=== PATIENT | male | born 1950 | race American Indian/Alaskan Native ===

== ENCOUNTER 2016-10-24 07:06 | Day surgery (SDC) | payer OTHER ==
[~2016-10-24 07:06] MED LIST: ANCEF/STERILE WATER 2 GM/20 ML 2 GM/20 ML SYRINGE IV NR; GARAMYCIN 120 MG in NACL 0.9% 100 ML IV SCH; GARAMYCIN/NS 120MG/100ML 120 MG/100 ML BAG IV SCH; PEPCID PO NR; VERSED IV NR
[2016-10-24] MEDS ORDERED: ZOFRAN ONE (07:07)
[2016-10-24] MEDS ORDERED: DECADRON ONE (07:07)
[2016-10-24] MEDS ORDERED: DILAUDID ONE (07:07)
[2016-10-24] MEDS ORDERED: DIPRIVAN 10 MG/ML IV ONE (07:07)
[2016-10-24] MEDS ORDERED: XYLOCAINE MPF 2% ONE (07:08)
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
--- NOTE | 2016-10-24 07:25 | Anesthesia Day of Surgery ---
Anesthesia Day of Surgery - Day of Surgery Patient Examined: Yes Patient H&P Reviewed: Yes Patient is NPO: Yes
[2016-10-24 08:00] LABS: Basophils % (Auto) 1.2 % (0.0-1.8); Eosinophils % (Auto) 5.2 % (0.0-4.3); Hematocrit 41.7 % (35.5-45.6); Mean Corpuscular HGB Conc 34 % (32-34); Mean Corpuscular Hemoglobin 29 pg (28-32); Mean Corpuscular Volume 87 fl (84-94); Platelet Count 174 K/mm3 (140-440); Red Blood Count 4.81 M/mm3 (3.65-5.03); Red Cell Distribution Width 13.3 % (13.2-15.2); White Blood Count 4.8 K/mm3 (4.5-11.0)
[2016-10-24] MEDS ORDERED: DILAUDID IV PRN (08:00)
[2016-10-24] MEDS ORDERED: ZOFRAN IV PRN (08:00)
[2016-10-24] MEDS: NACL 0.9% 1000 ML 1,000 ML IV SCH ×2 (08:09→09:37)
[2016-10-24 08:12] LABS: INR 0.93 (0.87-1.13); Partial Thromboplastin Time 30.2 Sec. (24.2-36.6)
[2016-10-24 08:23] LABS: Alanine Aminotransferase 16 units/L (7-56); Albumin/Globulin Ratio 1.4 %; Alkaline Phosphatase 68 units/L (35-129); Anion Gap 16 mmol/L; BUN/Creatinine Ratio 11.11; Blood Urea Nitrogen 10 mg/dL (9-20); Calcium 8.8 mg/dL (8.4-10.2); Carbon Dioxide 26 mmol/L (22-30); Chloride 102.2 mmol/L (98-107); Glucose 97 mg/dL (75-100); Sodium 140 mmol/L (137-145); Total Protein 6.8 g/dL (6.3-8.2)
[2016-10-24] MEDS ORDERED: WATER FOR IRRIG STERILE IR ONE (08:45)
--- NOTE | 2016-10-24 09:07 | Post Operative Note ---
Pre-op diagnosis: inc psa Post-op diagnosis: same Findings: hypoechoic zone L lobe Procedure Preoperative diagnosis is elevated PSA Postoperative diagnosis the same Procedure flexible cystoscopy prostate needle biopsy Surgeon Dr. Arias Anesthesia Gen. Findings\ Mr. Castillo is a 66-year-old gentleman who has a high PSA. He has a moderately enlarged prostate and now presents for prostate biopsy and flexible cystoscopy. Procedure Patient was brought to the operating room placed on the operating table. Following the induction of anesthesia placed in the lithotomy position prepped and draped in usual sterile fashion. At this point flexible cystoscopy was carried out and showed a large prostate with a middle lobe covering the trigone We had to wait for the ultrasound probe because apparently was some emergency. At this point when the ultrasound arrived prostate needle biopsy measured the prostate approximately 48 g. There was clearly a high polyp: His zone in the left lobe towards the base which measured approximately 1.5 x 1 cm. 12 biopsies were obtained using ultrasound guidance. Patient procedure well and bladder was emptied with Bruno catheter There was no significant complications and was given Ancef and gentamicin per to recovery in stable condition thank you and Dale Castillo Procedure: flex cysto pus biopsy Anesthesia: GETA Surgeon: BRITNI WILLARD Estimated blood loss: minimal Pathology: list (prostate) Specimen disposition: to lab Condition: stable Disposition: PACU
--- NOTE | 2016-10-24 09:08 | Discharge Summary ---
Short Stay Discharge Plan Activity: other (no straining ) Weight Bearing Status: Full Weight Bearing Diet: regular Special Instructions: other (inc fluids ) Durable Medical Equipment Needed Upon Discharge: other Follow up with: BRITNI WILLARD MD [Staff Physician] - 7 Days
--- NOTE | 2016-10-24 09:25 | XRay Report ---
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 The abdominal gas pattern is unremarkable. No masses or organomegaly is identified and there is no gross evidence of free air or fluid. No significant soft tissue calcifications are noted. IMPRESSION: Normal study.
--- NOTE | 2016-10-24 09:27 | Ultrasound Report ---
ULTRASOUND-GUIDED INTRAOPERATIVE HISTORY: Elevated PSA, prostate biopsy. DESCRIPTION OF PROCEDURE: Endorectal ultrasound guidance was provided by radiology during prostate biopsy by urology. Please correlate with the procedural report. IMPRESSION: Successful ultrasound guided prostate biopsy.
--- NOTE | 2016-10-24 09:32 | Post Anesthesia Evaluation ---
- Post Anesthesia Evaluation Patient Participated: Yes Airway Patent: Yes Stable Respiratory Function: Yes Nausea/Vomiting: No Temp > 96.8F: Yes Pain Manageable: Yes Adequeate Hydration: Yes Anesthesia Complications: No Block Receding Appropriately: Not Applicable Patient on Ventilator: No
[2016-10-24 11:12] VITALS: BP 133/68
== END 2016-10-24 11:35 ==
LOC: OR 07:06
PROVIDERS: ATTEND Urology
DX: N40.0 Benign prostatic hyperplasia without lower urinary tract symptoms (principal); N41.0 Acute prostatitis; N41.1 Chronic prostatitis; J45.909 Unspecified asthma, uncomplicated; I10 Essential (primary) hypertension; Z85.72 Personal history of non-Hodgkin lymphomas; Z87.891 Personal history of nicotine dependence
CPT/HCPCS: 36415; 55700; 74000; 76998; 80053; 85025; 85610; 85730; 88305; A4217; J0690; J1100; J1170; J1580; J2250; J2405; J2704; J7030

== ENCOUNTER 2019-03-19 06:31 | Day surgery (SDC) | payer OTHER ==
[~2019-03-19 06:31] MED LIST changes: -ANCEF/STERILE WATER 2 GM/20 ML 2 GM/20 ML SYRINGE IV NR; -GARAMYCIN 120 MG in NACL 0.9% 100 ML IV SCH; -GARAMYCIN/NS 120MG/100ML 120 MG/100 ML BAG IV SCH; -PEPCID PO NR; -VERSED IV NR; +ceFAZolin/STERILE WATER 2 GM/20 ML SYRINGE IV NR
[2019-03-19] MEDS ORDERED: fentaNYL 100 MCG/2 ML INJ IV PRN (07:31)
[2019-03-19] MEDS ORDERED: ONDANSETRON 4 MG/2 ML INJ IV PRN (07:31)
[2019-03-19] MEDS ORDERED: MAGNESIUM OXIDE 400 MG TAB PO NR (07:32)
[2019-03-19] MEDS ORDERED: ACETAMINOPHEN 325 MG TAB PO NR (07:32)
--- NOTE | 2019-03-19 07:33 | Anesthesia Day of Surgery ---
Anesthesia Day of Surgery - Day of Surgery Patient Examined: Yes Patient H&P Reviewed: Yes Patient is NPO: Yes
--- NOTE | 2019-03-19 07:37 | Anesthesia Consultation ---
Anesthesia Consult and Med Hx Date of service: 03/19/19 - Airway Anesthetic Teeth Evaluation: Poor, Chipped ROM Head & Neck: Adequate Mental/Hyoid Distance: Adequate Mallampati Class: Class II Intubation Access Assessment: Probably Good - Pre-Operative Health Status ASA Pre-Surgery Classification: ASA2 Proposed Anesthetic Plan: General - Pulmonary Hx Smoking: Yes Hx Asthma: Yes (INH AND PRN NEBS) Hx Sleep Apnea: No (JAQUI PRE SCREEN HIGH RISK) - Cardiovascular System Hx Hypertension: Yes (2008) - Central Nervous System Hx Neuromuscular Disorder: Yes (Neuropathy left hand) Hx Psychiatric Problems: No - Other Systems Hx Cancer: Yes (Prostate)
[2019-03-19] MEDS ORDERED: BACTERIOSTATIC SODIUM CHLORIDE 0.9% 30 ML VIAL INFILTRATI ONE (07:44)
[2019-03-19] MEDS ORDERED: LACTATED RINGERS 1,000 ML IV SCH (08:00)
[2019-03-19] MEDS ORDERED: GABAPENTIN 300 MG CAP PO NR (08:00)
[2019-03-19] MEDS ORDERED: CELECOXIB 200 MG CAP PO NR (08:00)
[2019-03-19] MEDS ORDERED: BUPIVACAINE-EPINEPHRINE/PF 0.25%-1:200,000 (30 ML) VIAL INFILTRATI ONE ×3 (09:27→10:19)
[2019-03-19] MEDS ORDERED: HYDROmorphone 1 MG/1 ML INJ ONE (09:28)
[2019-03-19] MEDS ORDERED: PROPOFOL 200 MG/20 ML VIAL IV ONE (09:28)
[2019-03-19] MEDS ORDERED: LIDOCAINE MPF (2%) 20 MG/1 ML VIAL 5 ML ONE (09:30)
[2019-03-19] MEDS ORDERED: ROCURONIUM 50 MG/5 ML INJ IV ONE (09:31)
[2019-03-19] MEDS ORDERED: SODIUM CHLORIDE 0.9% 1000 ML IV SOLN IR ONE (10:58)
[2019-03-19] MEDS ORDERED: ONDANSETRON 4 MG/2 ML INJ ONE (12:09)
[2019-03-19] MEDS ORDERED: GLYCOPYRROLATE 0.4 MG/2 ML INJ ONE (12:09)
[2019-03-19] MEDS ORDERED: NEOSTIGMINE 10MG/10 ML INJ MDV ONE (12:09)
[2019-03-19] MEDS ORDERED: LACTATED RINGERS 1,000 ML ONE (12:12)
--- NOTE | 2019-03-19 12:58 | Short Stay Summary ---
Short Stay Documentation Date of service: 03/19/19 - History H&P: obtained from office - Allergies and Medications Current Medications: Allergies No Known Allergies Allergy (Verified 03/12/19 14:41) Home Medications Medication Instructions Recorded Confirmed Last Taken Type ALBUTEROL NEB's [Proventil 0.083% 2.5 mg IH TID PRN 03/12/19 03/12/19 03/19/19 05:30 History NEBS] Fluticasone Propionate [Flovent 12 gm IH BID 03/12/19 03/12/19 03/19/19 05:30 History Hfa] dilTIAZem HCl [Diltiazem 24Hr ER 240 mg PO DAILY 03/12/19 03/12/19 03/19/19 05:30 History (Cd)] Active Medications Cefazolin Sodium (Ancef/Sterile Water 2 Gm/20 Ml) 2 gm IV PREOP NR Stop: 03/19/19 23:59 Celecoxib (Celebrex) 200 mg PO PREOP NR Stop: 03/19/19 13:00 Last Admin: 03/19/19 07:43 Dose: 200 mg Documented by: Fentanyl (Sublimaze) 50 mcg IV Q5MIN PRN PRN Reason: Pain , Severe (7-10) Stop: 03/19/19 20:00 Gabapentin (Gabapentin) 300 mg PO PREOP NR Stop: 03/19/19 13:00 Last Admin: 03/19/19 07:43 Dose: 300 mg Documented by: Lactated Ringer's (Lactated Ringers) 1,000 mls @ 125 mls/hr IV DIRECT MILANA Last Admin: 03/19/19 08:00 Dose: 125 mls/hr Documented by: Magnesium Oxide (Mag-Ox) 400 mg PO ONCE NR Stop: 03/19/19 13:00 Last Admin: 03/19/19 07:43 Dose: 400 mg Documented by: Ondansetron HCl (Zofran) 4 mg IV ONCE PRN PRN Reason: Nausea And Vomiting Stop: 03/19/19 13:00 - Brief post op/procedure progress note Date of procedure: 03/19/19 Pre-op diagnosis: left inguinal hernia Post-op diagnosis: same Procedure: lap left inguinal hernia repair with mesh Anesthesia: GETA Surgeon: ARMIN MENA Estimated blood loss: none Pathology: none Condition: stable - Disposition Condition at discharge: Stable Disposition: DC-01 TO HOME OR SELFCARE Short Stay Discharge Plan Activity: advance as tolerated Diet: regular Wound: keep clean and dry Follow up with: CAMERON MONTANO MD [Primary Care Provider] - 7 Days ARMIN MENA MD [Staff Physician] - 7 Days Prescriptions: oxyCODONE /ACETAMINOPHEN [Percocet 5/325] 1 tab PO Q6HR PRN #30 tablet PRN Reason: Pain
--- NOTE | 2019-03-19 13:09 | Operative Report ---
PREOPERATIVE DIAGNOSIS: Left inguinal hernia. POSTOPERATIVE DIAGNOSIS: Left inguinal hernia. OPERATIVE PROCEDURE: A laparoscopic preperitoneal left inguinal hernia repair with mesh. SURGEON: Arcelia Lama MD. SENIOR CENTER MANAGER: None. ANESTHESIA: General, 0.25% Marcaine for local. ESTIMATED BLOOD LOSS: Minimal. COMPLICATIONS: None. INSTRUMENT COUNT: Correct. FINDINGS: Severe scarring near the pelvis from previous prostatectomy. SPECIMENS: None. IMPLANTS: Bard 3DMax mesh, left-sided. INDICATIONS: This is a 68-year-old male with a history of left groin bulge, who on clinical exam was found to have a left inguinal hernia. He was offered the above named procedure as a possible treatment modality. The risks and benefits were discussed until all questions were answered. He was subsequently brought to the OR. TECHNIQUE: I reviewed the informed consent. The patient was then placed supine upon the table. After adequate anesthesia was reached, the patient was verified. He was then prepped and draped in the usual sterile fashion. I made a 1 cm incision at the level of the umbilicus and dissected down to the anterior layer of the rectus sheath. This was scored sharply using a 15 blade. The rectus muscle was swept aside and a Omgili oval balloon dissector was placed within the preperitoneal space. This was inflated and under direct vision, we were able to ensure that no injury was done to the bladder. I deflated the balloon and placed a 10 mm balloon-tipped trocar within that space and the preperitoneal space was insufflated to 10 mmHg. Two 5 mm were then placed in the midline under direct vision and I began dissecting with significant scarring and after some time, I was able to identify the hernia sac. This was carefully dissected free from the gonadal structures and completely reduced out of the direct location. Once this was done, I placed a medium Bard 3DMax mesh within the preperitoneal space and secured it to Semaj's ligament medially and to the anterior abdominal wall superiorly and laterally. Care was taken to avoid the iliopubic tract. We had good coverage of the hernia defect. At this time, I grabbed the hernia sac, which was noted to be extremely thickened secondary to a long use and secured it outside of the field of the mesh. At this time, I removed the insufflation, removed all ports, closed the fascia using a #0 Vicryl, and then closed all skin incisions using 4-0 Monocryl. Skin glue was used to bandage the incisions. The patient was awakened, extubated, and transferred to PACU in no apparent distress. JOB# [id number] AIN/NTS
--- NOTE | 2019-03-19 14:26 | Post Anesthesia Evaluation ---
- Post Anesthesia Evaluation Patient Participated: Yes Airway Patent: Yes Stable Respiratory Function: Yes Nausea/Vomiting: No Temp > 96.8F: Yes Pain Manageable: Yes Adequeate Hydration: Yes Anesthesia Complications: No
[2019-03-19 14:58] VITALS: BP 129/69
== END 2019-03-19 06:32 | disposition home or self-care (01) ==
LOC: OR 06:31
PROVIDERS: ATTEND Surgery
DX: K40.90 Unilateral inguinal hernia, without obstruction or gangrene, not specified as recurrent (principal); G62.9 Polyneuropathy, unspecified; E78.00 Pure hypercholesterolemia, unspecified; M19.90 Unspecified osteoarthritis, unspecified site; I10 Essential (primary) hypertension; J45.909 Unspecified asthma, uncomplicated; K21.9 Gastro-esophageal reflux disease without esophagitis; Z85.46 Personal history of malignant neoplasm of prostate; Z87.442 Personal history of urinary calculi; Z80.42 Family history of malignant neoplasm of prostate; Z79.899 Other long term (current) drug therapy; Z98.890 Other specified postprocedural states
CPT/HCPCS: 49650; J0690; J1170; J2405; J2704; J2710; J3010; J7030; J7120; C1726; C1781

== ENCOUNTER 2019-09-25 04:21 | Emergency (ER) | payer OTHER ==
[2019-09-25] MEDS ORDERED: ALBUTEROL 2.5 MG/3 ML NEBU IH ONE ×2 (04:38→04:44)
[2019-09-25] MEDS ORDERED: IPRATROPIUM 0.02% NEBU 2.5 ML IH ONE ×2 (04:38→04:44)
--- NOTE | 2019-09-25 05:04 | Emergency Department Report ---
<LAILA DEL RIO - Last Filed: 09/25/19 05:35> ED Asthma HPI - General Chief Complaint: Adult Asthma Stated Complaint: ASTHMA Time Seen by Provider: 09/25/19 04:33 Source: patient, EMS Mode of arrival: Wheelchair Limitations: No Limitations - History of Present Illness Initial Comments: This is a 69-year-old male with history of hypertension, diabetes mellitus, GERD, arthritis, kidney stones, asthma with previous hospitalization no intubation who presents via EMS. He feels his trigger was likely the weather. He has severe shortness of breath and wheezing. He was treated with bronchodilator therapy magnesium Solu-Medrol via EMS. He himself self treated with 10 breathing treatments throughout the day. No history of tobacco abuse. MD Complaint: "asthma attack", shortness of breath, wheezing -: Gradual, days(s) (1) Asthma History: history of frequent attac, history of prior ED visit Severity: severe Context: other (Weather outside) Treatments Prior to Arrival: inhaled bronchodilator, IV steroid, other (IV magnesium) - Related Data Home Medications Medication Instructions Recorded Confirmed Last Taken ALBUTEROL NEB's [Proventil 0.083% 2.5 mg IH TID PRN 03/12/19 03/12/19 03/19/19 05:30 NEBS] Fluticasone Propionate [Flovent 12 gm IH BID 03/12/19 03/12/19 03/19/19 05:30 Hfa] dilTIAZem HCl [Diltiazem 24Hr ER 240 mg PO DAILY 03/12/19 03/12/19 03/19/19 05:30 (Cd)] Previous Rx's Medication Instructions Recorded Last Taken Type oxyCODONE /ACETAMINOPHEN [Percocet 1 tab PO Q6HR PRN #30 tablet 03/19/19 Unknown Rx 5/325] ALBUTEROL NEB's [Proventil 0.083% 2.5 mg IH TID PRN #1 box 09/25/19 Unknown Rx NEBS] DOXYCYCLINE Hyclate [Vibramycin 100 mg PO Q12HR 7 Days #14 capsule 09/25/19 Unknown Rx CAP] Prednisone [predniSONE 10 mg 10 mg PO .TAPER #1 tab.ds.pk 09/25/19 Unknown Rx (6-Day Pack, 21 Tabs)] Allergies Allergy/AdvReac Type Severity Reaction Status Date / Time No Known Allergies Allergy Verified 03/12/19 14:41 ED Review of Systems Comment: All other systems reviewed and negative Constitutional: denies: fever, malaise Respiratory: shortness of breath Cardiovascular: denies: chest pain ED Past Medical Hx - Past Medical History Previous Medical History?: Yes Hx Hypertension: Yes (2008) Hx Diabetes: Yes Hx GERD: Yes Hx Arthritis: Yes (HANDS) Hx Kidney Stones: Yes (PASSED WITH MEDICINE) Hx Asthma: Yes (INH AND PRN NEBS) Hx HIV: No - Social History Smoking Status: Never Smoker Substance Use Type: None - Medications Home Medications: Home Medications Medication Instructions Recorded Confirmed Last Taken Type ALBUTEROL NEB's [Proventil 0.083% 2.5 mg IH TID PRN 03/12/19 03/12/19 03/19/19 05:30 History NEBS] Fluticasone Propionate [Flovent 12 gm IH BID 03/12/19 03/12/19 03/19/19 05:30 History Hfa] dilTIAZem HCl [Diltiazem 24Hr ER 240 mg PO DAILY 03/12/19 03/12/19 03/19/19 05:30 History (Cd)] oxyCODONE /ACETAMINOPHEN [Percocet 1 tab PO Q6HR PRN #30 tablet 03/19/19 Unknown Rx 5/325] ALBUTEROL NEB's [Proventil 0.083% 2.5 mg IH TID PRN #1 box 09/25/19 Unknown Rx NEBS] DOXYCYCLINE Hyclate [Vibramycin 100 mg PO Q12HR 7 Days #14 capsule 09/25/19 Unknown Rx CAP] Prednisone [predniSONE 10 mg 10 mg PO .TAPER #1 tab.ds.pk 09/25/19 Unknown Rx (6-Day Pack, 21 Tabs)] ED Physical Exam - General Limitations: No Limitations General appearance: alert, in distress, other (Tripod position obvious work of breathing) - Head Head exam: Present: atraumatic, normocephalic - Eye Eye exam: Present: normal appearance - ENT ENT exam: Present: mucous membranes moist - Neck Neck exam: Present: normal inspection, full ROM - Respiratory Respiratory exam: Present: respiratory distress, wheezes, accessory muscle use, decreased breath sounds, prolonged expiratory. Absent: rales, rhonchi - Cardiovascular Cardiovascular Exam: Present: regular rate, normal rhythm, normal heart sounds. Absent: systolic murmur, diastolic murmur, rubs, gallop - GI/Abdominal GI/Abdominal exam: Present: soft, normal bowel sounds. Absent: distended, tenderness, guarding, rebound - Rectal Rectal exam: Present: deferred - Extremities Exam Extremities exam: Present: normal inspection - Neurological Exam Neurological exam: Present: alert, oriented X3 - Psychiatric Psychiatric exam: Present: normal affect, normal mood - Skin Skin exam: Present: warm, dry, intact, normal color. Absent: rash ED Course - Reevaluation(s) Reevaluation #1: 09/25/19 05:34 Upon reexamination, symptoms have improved. Patient is more comfortable. Has improved air movement on auscultation ED Medical Decision Making - Radiology Data Radiology results: report reviewed AP portable chest: No acute findings according to radiology impression - Medical Decision Making Acute asthma exacerbation: Anticipate discharge once symptoms completely resolved. Patient has markedly improved during brief course in the emergency department thus far. My colleague will determine appropriate disposition ABG reveals mild hypoventilation, mild respiratory acidosis pH 7.35, PCO2 45. ED Disposition Clinical Impression: Acute asthma exacerbation Disposition: DC-01 TO HOME OR SELFCARE Is pt being admited?: No Does the pt Need Aspirin: No Condition: Stable Instructions: Asthma (ED) Prescriptions: Prednisone [predniSONE 10 mg (6-Day Pack, 21 Tabs)] 10 mg PO .TAPER #1 tab.ds.pk ALBUTEROL NEB's [Proventil 0.083% NEBS] 2.5 mg IH TID PRN #1 box PRN Reason: Wheezing DOXYCYCLINE Hyclate [Vibramycin CAP] 100 mg PO Q12HR 7 Days #14 capsule Referrals: PRIMARY CARE, [Primary Care Provider] - 3-5 Days <KERRIE GREENE - Last Filed: 09/25/19 07:55> ED Review of Systems ROS: Stated complaint: ASTHMA Other details as noted in HPI ED Course Vital Signs 09/25/19 09/25/19 09/25/19 04:50 04:57 05:16 Temperature 97.6 F Pulse Rate 106 H 97 H Pulse Rate [ 100 H Bilateral] Respiratory 17 17 Rate Respiratory 22 Rate [Bilateral ] Blood Pressure 116/73 Blood Pressure 170/87 [Left] O2 Sat by Pulse 100 100 Oximetry 09/25/19 09/25/19 09/25/19 05:30 05:46 06:00 Temperature Pulse Rate 102 H 95 H 89 Pulse Rate [ Bilateral] Respiratory 19 14 16 Rate Respiratory Rate [Bilateral ] Blood Pressure 116/73 116/73 116/73 Blood Pressure [Left] O2 Sat by Pulse 100 100 100 Oximetry 09/25/19 09/25/19 09/25/19 06:16 06:36 06:46 Temperature Pulse Rate 92 H 89 91 H Pulse Rate [ Bilateral] Respiratory 18 15 20 Rate Respiratory Rate [Bilateral ] Blood Pressure 122/76 116/73 122/76 Blood Pressure [Left] O2 Sat by Pulse 100 100 99 Oximetry 09/25/19 09/25/19 07:00 07:16 Temperature Pulse Rate 93 H 91 H Pulse Rate [ Bilateral] Respiratory 15 17 Rate Respiratory Rate [Bilateral ] Blood Pressure 142/82 142/82 Blood Pressure [Left] O2 Sat by Pulse 100 98 Oximetry ED Medical Decision Making - Lab Data Result diagrams: 09/25/19 05:02 09/25/19 05:02 - Medical Decision Making pt feeling much better lungs CTAB pt tolerated ambulation without dyspnea and room air saturations were 94 to 95% Patient will be discharged with meds prescribed by Critical care attestation.: If time is entered above; I have spent that time in minutes in the direct care of this critically ill patient, excluding procedure time. ED Disposition Is pt being admited?: No Time of Disposition: 07:54
[2019-09-25 05:12] LABS: ABG Base Excess -1.4 mmol/L (-2.0-3.0); ABG HCO3 24.4 mmol/L (20.0-26.0); ABG Methemoglobin 0.8 % (0.0-1.5); ABG Oxygen Saturation 97.1 % (95.0-99.0); ABG PCO2 45.2 mm Hg; ABG PH 7.35 pH Units (7.350-7.450); ABG PO2 94.2 mm Hg (80.0-90.0)
--- NOTE | 2019-09-25 05:13 | XRay Report ---
CHEST 1 VIEW 09/25/2019 4:41 AM INDICATION / CLINICAL INFORMATION: Asthma, shortness of breath. COMPARISON: None available. FINDINGS: SUPPORT DEVICES: None. HEART / MEDIASTINUM: No significant abnormality. LUNGS / PLEURA: No significant pulmonary or pleural abnormality. No pneumothorax. ADDITIONAL FINDINGS: No significant additional findings. IMPRESSION: 1. No acute abnormality of the chest. Signer Name: Steven Moore MD Signed: 09/25/2019 5:09 AM Workstation Name: [id number]
[2019-09-25 05:55] LABS: Basophils % (Auto) 0.6 % (0.0-1.8); Eosinophils # (Auto) 0.1 K/mm3 (0.0-0.4); Eosinophils % (Auto) 1.8 % (0.0-4.3); Hematocrit 40.3 % (35.5-45.6); Hemoglobin 13.2 gm/dl (11.8-15.2); Lymphocytes # (Auto) 0.5 K/mm3 (1.2-5.4); Lymphocytes % (Auto) 6.5 % (13.4-35.0); Mean Corpuscular HGB Conc 33 % (32-34); Mean Corpuscular Volume 87 fl (84-94); Monocytes # (Auto) 0.4 K/mm3 (0.0-0.8); Monocytes % (Auto) 4.9 % (0.0-7.3); Platelet Count 275 K/mm3 (140-440); Red Blood Count 4.64 M/mm3 (3.65-5.03); Red Cell Distribution Width 13.3 % (13.2-15.2)
[2019-09-25 05:58] LABS: BUN/Creatinine Ratio 17; Blood Urea Nitrogen 17 mg/dL (9-20); Hemolysis Index 2
[2019-09-25 13:48] VITALS: BP 142/82
== END 2019-09-25 09:30 | disposition home or self-care (01) ==
LOC: ED 04:21
DX: J45.901 Unspecified asthma with (acute) exacerbation (principal); I10 Essential (primary) hypertension; E11.9 Type 2 diabetes mellitus without complications; K21.9 Gastro-esophageal reflux disease without esophagitis; M19.90 Unspecified osteoarthritis, unspecified site
CPT/HCPCS: 36415; 71045; 80048; 82803; 85025; 94640; 94644; 99284